=== PATIENT | female | born 1945 | race Caucasian/White ===

== ENCOUNTER → 2021-12-19 | Outpatient (CLI) | payer MEDICARE ==
[~2021-12-19] MED LIST: ANAS1 PO; ATOR40TA PO; BISA5EC PO; GABA300 PO; HYDCHL12.5 PO; HYDR1TAB94 PO; LETR2.5 PO; LISI5 PO; Milk Of Ma400 MG/5 M PO; Prednisone20 MG PO; WARF5 PO
== END ==
LOC: LAB SHORT 14:47
DX: R30.0 Dysuria (principal)
CPT/HCPCS: 87086

== ENCOUNTER 2022-07-15 10:06 | Day surgery (SDC) | payer MEDICARE ==
[~2022-07-15] VITALS: Ht 160 cm; Wt 53.0 kg
[2022-07-15] MEDS ORDERED: CILOSTAZOL50 M1 PO (10:47)
[2022-07-15] MEDS ORDERED: CLOP75 PO (10:47)
--- NOTE | 2022-07-15 15:36 | NUR ---
SPOKE TO DR LUDWIG CONCERNING AND INCREASE IN SWELLING OF LEFT CALF. TISSUE IS SOFT ABOVE, BELOW AND ON OPPOSITE SIDE. BLOOD PRESSURE CUFF APPLIED BUT TOO PAINFUL, COBAN PLACED LIGHTLY THAT HELPED WITH PAIN. CALF DOES NOT APPEAR TO HAVE INCREASED IN SWELLING. WARM BLANKET ON CALF HAS ALSO HELPED.
--- NOTE | 2022-07-15 16:08 | NUR ---
PATIENT SITTING UP IN BED. RIGHT AN LEFT GROIN SITE SOFT AND NONTENDER. LEFT CALF UNCHANGED,
--- NOTE | 2022-07-15 16:15 | NUR ---
LEFT GROIN SITE BLEED, MANUAL PRESSURE HELD, SITE CONTROLED.
--- NOTE | 2022-07-15 16:20 | NUR ---
RUT BASURTO HERE, TRADE OF OF MANUAL PRESSURE. SITE DOES NOT APPEAR TO BE BLEEDING AT THIS TIME, BUT MANUAL PRESSURE HELD BY RUT BASURTO FOR 10 MINTES.
--- NOTE | 2022-07-15 16:40 | NUR ---
LEFT GROIN SITE DRESSING PLACED. NO BLEEDING NO HEMATOMA. PEDAL PULSE 2, TIBIAL 1.
--- NOTE | 2022-07-15 17:34 | NUR ---
PATIENT SITTING UP IN BED. LEFT GROIN SITE SOFT AND NONTENDER NO HEMATOMA NO BLEEDING. COBAN REMOVED FROM LEFT CALF. TISSUE IS SOFTER THAN PRIOR AND THER IS NO INCREASED SWELLING.
--- NOTE | 2022-07-15 17:50 | NUR ---
PATIENT SITTING IN CHAIR. DRESSED. RIGHT AND LEFT GROIN SITES STABLE. PATIENT STATES THAT LEFT CALF DOES NOT HURT BAD AT THIS TIME.
--- NOTE | 2022-07-15 17:56 | NUR ---
PATIENT VERBALIZED UNDERSTANDING OF DISCHARGE INSTRUCTIONS AND PRECAUTIONS, LEFT CALF UNCHANGED, NO FURTHER SWELLING, NO INCREASED PAIN. LEFT AND RIGHT GROIN SITES SOFT AND NONTENDER , NO HEMATOMA, NO BLEEDING. NO FURTHER QUESTIONS. PATIENT TRANSFERRED VIA WHEEL CHAIR BY CLIFF BASURTO TO WAITING CAR. DAUGHTER IN LAW DRIVING
== END 2022-07-15 17:45 | disposition home or self-care (01) ==
LOC: MHTC 10:06
DX: I70.213 Atherosclerosis of native arteries of extremities with intermittent claudication, bilateral legs (principal); Z86.73 Personal history of transient ischemic attack (TIA), and cerebral infarction without residual deficits; I10 Essential (primary) hypertension; E78.5 Hyperlipidemia, unspecified; M81.0 Age-related osteoporosis without current pathological fracture; F17.210 Nicotine dependence, cigarettes, uncomplicated
CPT/HCPCS: 37225; 37244; 75625; 75710; 75716; 76937; 85347; 99152; 99153; A9270; C1714; C1725; C1769; C1887; C1894; C2623; J1644; J2250; J2405; J2720; J3010; J7030; J7040; Q9967

== ENCOUNTER 2023-01-28 10:58 | Emergency (ER) | payer MEDICARE ==
[~2023-01-28] VITALS: Ht 162.6 cm; Wt 49.9 kg
[~2023-01-28 10:58] MED LIST changes: +CILOSTAZOL50 M1 PO; +CLOP75 PO
[2023-01-28 11:20] LABS: BASOPHILS ABSOLUTE AUTO 0.07 K/mm3 (0.00-0.23); BASOPHILS PERCENT AUTO 1 % (0-2); EOSINOPHILS ABSOLUTE AUTO 0.12 K/mm3 (0.00-0.68); EOSINOPHILS PERCENT AUTO 1 % (0-6); Hematocrit 41.5 % (33.0-51.0); Hemoglobin 14.3 g/dL (11.5-16.0); IMMATURE GRAN ABSOLUTE AUTO 0.03 K/mm3 (0.00-0.10); IMMATURE GRAN PERCENT AUTO 0 % (0-1); LYMPHOCYTES ABSOLUTE AUTO 1.15 K/mm3 (0.84-5.20); LYMPHOCYTES PERCENT AUTO 14 % (21-46); MONOCYTES ABSOLUTE AUTO 0.67 K/mm3 (0.16-1.47); MONOCYTES PERCENT AUTO 8 % (4-13); Mean Corpuscular HGB 30.9 pg (26.0-34.0); Mean Corpuscular HGB Conc 34.5 g/dL (31.5-36.5); Mean Corpuscular Volume 90 fL (80-100); Mean Platelet Volume 8.3 fL (9.1-12.4); NEUTROPHILS PERCENT AUTO 76 % (41-73); Platelet Count 306 K/mm3 (150-400); RDW Coefficient Variation 13.5 % (11.7-14.2); RDW Standard Deviation 44.5 fL (35.1-46.3); Red Blood Cell Count 4.63 M/mm3 (3.80-5.20); White Blood Cell Count 8.44 K/mm3 (4.00-11.30)
[2023-01-28 11:38] LABS: Albumin, Blood 3.3 g/dL (3.4-5.0); Bilirubin, Total 0.5 mg/dL (0.1-1.0); Bun/Creatinine Ratio 16.4 (12.0-20.0); Creatinine, Blood 0.79 mg/dL (0.40-1.00); Globulin, Blood 3.4 g/dL (2.2-4.0); Magnesium, Blood 2.2 mg/dL (1.6-2.4); Potassium, Blood 4.2 mmol/L (3.5-5.5); Total Protein, Blood 6.7 g/dL (6.4-8.2)
[2023-01-28 11:43] VITALS: BP 240/75
[2023-01-28] MEDS ORDERED: HYDR1TAB94 PO (13:32)
== END 2023-01-28 13:40 | disposition home or self-care (01) ==
LOC: ER 10:58
PROVIDERS: Emergency Medicine
DX: R55 Syncope and collapse (principal); S02.2XXA Fracture of nasal bones, initial encounter for closed fracture; S01.511A Laceration without foreign body of lip, initial encounter; S61.411A Laceration without foreign body of right hand, initial encounter; W18.30XA Fall on same level, unspecified, initial encounter; Z88.1 Allergy status to other antibiotic agents; Z88.8 Allergy status to other drugs, medicaments and biological substances; Z79.899 Other long term (current) drug therapy; Z85.3 Personal history of malignant neoplasm of breast; F17.210 Nicotine dependence, cigarettes, uncomplicated
CPT/HCPCS: 36415; 70450; 70486; 72125; 80053; 83735; 85025; 93005; 93010; 99284-25; A9270; J7030

== ENCOUNTER 2023-04-05 17:38 | Emergency (ER) | payer MEDICARE ==
[~2023-04-05] VITALS: Ht 162.6 cm; Wt 49.4 kg
[~2023-04-05 17:38] MED LIST changes: +Aspir 8181 MG PO; +B COMPLEX VITAMINS; +BUPR150ER PO; +Calcium Carbon500 MG PO; +DOXYCYCLINE PO; +MULTIVITAMIN; +VITAMIN D3 ORAL
[2023-04-05 18:22] LABS: BASOPHILS ABSOLUTE AUTO 0.08 K/mm3 (0.00-0.23); BASOPHILS PERCENT AUTO 1 % (0-2); EOSINOPHILS ABSOLUTE AUTO 0.18 K/mm3 (0.00-0.68); EOSINOPHILS PERCENT AUTO 2 % (0-6); Hematocrit 43.3 % (33.0-51.0); Hemoglobin 14.9 g/dL (11.5-16.0); IMMATURE GRAN ABSOLUTE AUTO 0.02 K/mm3 (0.00-0.10); IMMATURE GRAN PERCENT AUTO 0 % (0-1); LYMPHOCYTES ABSOLUTE AUTO 1.13 K/mm3 (0.84-5.20); LYMPHOCYTES PERCENT AUTO 12 % (21-46); MONOCYTES ABSOLUTE AUTO 0.76 K/mm3 (0.16-1.47); MONOCYTES PERCENT AUTO 8 % (4-13); Mean Corpuscular HGB 30.4 pg (26.0-34.0); Mean Corpuscular HGB Conc 34.4 g/dL (31.5-36.5); Mean Corpuscular Volume 88 fL (80-100); Mean Platelet Volume 8.4 fL (9.1-12.4); NEUTROPHILS ABSOLUTE AUTO 7.64 K/mm3 (1.96-9.15); NEUTROPHILS PERCENT AUTO 78 % (41-73); Platelet Count 356 K/mm3 (150-400); RDW Coefficient Variation 13.7 % (11.7-14.2); RDW Standard Deviation 44.2 fL (35.1-46.3); White Blood Cell Count 9.81 K/mm3 (4.00-11.30)
[2023-04-05 18:32] LABS: International Normalized Ratio 0.94; Prothrombin Time Results 9.9 Sec (9.7-11.5)
[2023-04-05 18:44] LABS: Albumin, Blood 3.7 g/dL (3.4-5.0); Albumin/Globulin Ratio 0.8 (0.8-1.8); Bilirubin, Total 0.3 mg/dL (0.1-1.0); Bun/Creatinine Ratio 16.7 (12.0-20.0); Calcium, Blood 9.9 mg/dL (8.5-10.1); Creatinine, Blood 0.84 mg/dL (0.40-1.00); Globulin, Blood 4.4 g/dL (2.2-4.0); Potassium, Blood 4.3 mmol/L (3.5-5.5); Total Protein, Blood 8.1 g/dL (6.4-8.2)
[2023-04-05 19:16] VITALS: BP 199/73
== END 2023-04-05 20:15 | disposition home or self-care (01) ==
LOC: ER 17:38
PROVIDERS: Emergency Medicine
DX: I73.9 Peripheral vascular disease, unspecified (principal); F17.210 Nicotine dependence, cigarettes, uncomplicated; Z88.1 Allergy status to other antibiotic agents; Z88.8 Allergy status to other drugs, medicaments and biological substances; Z79.899 Other long term (current) drug therapy
CPT/HCPCS: 73706; 80053; 85025; 85610; 99284-25; Q9967

== ENCOUNTER 2023-04-27 11:21 | Observation (INO) | payer MEDICARE ==
[~2023-04-27] VITALS: Ht 160 cm; Wt 49.1 kg
[2023-04-27] VITALS (21 sets, daily range): BP systolic 113–176; BP diastolic 49–129
--- NOTE | 2023-04-27 15:55 | NUR ---
1230 PATIENT PREPPED FOR PROCEDURE AND DAUGHTER AT THE BEDSIDE.
--- NOTE | 2023-04-27 16:58 | NUR ---
PATIENT RETURNED FROM THE [facility]ATH[facility] WITH SHEATH IN PLACE TO THE LEFT FEMORAL ARTERY. PAITENT BECAME NAUSEATED WITH TRANSFER AND TURNED UP ON THE RIGHT SIDE AND GIVEN 4 MG IV ZOFRAN, PATIENT PLACED ON THE MONITOR, 4 LPM OF OXYGEN AND REPOSITIONED UP IN THE BED, SUPINE, FLAT. LEFT GROIN CDI, NO BLEEDING, NO HEMATOMA NOTED.
--- NOTE | 2023-04-27 17:10 | NUR ---
CALLED DAUGHTER AND UPDATED ON PATIENT STATUS AND NEED FOR STAY OVER NIGHT. ALL QUESTIONS ANSWERED.
--- NOTE | 2023-04-27 17:48 | NUR ---
SECOND PIV WAS STARTED TO THE RIGHT AC AND HEALRIN STARTED AT 300 UNIT/HR ORDERED. TPA TO THE BEDSIDE AND STARTED TO THE SIDEPORT OF THE SHEATH. BASELINE FIBRINOGEN WAS DRAWN IN THE HEART CENTER PRIOR TO TRANSFER. SBAR GIVEN TO SUSANA. TRANSFERED TO ICU #1 BY SHERINE MURILLO AND SHERINE TEJADA AND SUSANA BASURTO.
[2023-04-27 18:05] LABS: BASOPHILS ABSOLUTE AUTO 0.05 K/mm3 (0.00-0.23); BASOPHILS PERCENT AUTO 1 % (0-2); EOSINOPHILS ABSOLUTE AUTO 0.14 K/mm3 (0.00-0.68); EOSINOPHILS PERCENT AUTO 2 % (0-6); Hematocrit 34.8 % (33.0-51.0); Hemoglobin 11.5 g/dL (11.5-16.0); IMMATURE GRAN ABSOLUTE AUTO 0.02 K/mm3 (0.00-0.10); IMMATURE GRAN PERCENT AUTO 0 % (0-1); LYMPHOCYTES ABSOLUTE AUTO 1.09 K/mm3 (0.84-5.20); LYMPHOCYTES PERCENT AUTO 14 % (21-46); MONOCYTES ABSOLUTE AUTO 0.74 K/mm3 (0.16-1.47); MONOCYTES PERCENT AUTO 10 % (4-13); Mean Corpuscular HGB 30.4 pg (26.0-34.0); Mean Corpuscular Volume 92 fL (80-100); Mean Platelet Volume 8.4 fL (9.1-12.4); NEUTROPHILS ABSOLUTE AUTO 5.77 K/mm3 (1.96-9.15); NEUTROPHILS PERCENT AUTO 74 % (41-73); Platelet Count 277 K/mm3 (150-400); RDW Coefficient Variation 14.1 % (11.7-14.2); RDW Standard Deviation 47.8 fL (35.1-46.3); Red Blood Cell Count 3.78 M/mm3 (3.80-5.20); White Blood Cell Count 7.81 K/mm3 (4.00-11.30)
[2023-04-27 18:22] LABS: Anion Gap 8 mmol/L (6-16); Blood Urea Nitrogen 17 mg/dL (8-24); Bun/Creatinine Ratio 23.1 (12.0-20.0); CO2, Blood 23 mmol/L (21-32); Calcium, Blood 8.8 mg/dL (8.5-10.1); Chloride, Blood 103 mmol/L (98-108); Creatinine, Blood 0.74 mg/dL (0.40-1.00); Glomerular Filtration Rate 83 (60-); Glucose, Blood 127 mg/dL (70-99); Magnesium, Blood 2.3 mg/dL (1.6-2.4); Phosphorus, Blood 4.4 mg/dL (2.5-4.9); Potassium, Blood 4.5 mmol/L (3.5-5.5); Sodium, Blood 134 mmol/L (136-145)
--- NOTE | 2023-04-27 19:22 | NUR ---
[place] of Care: Care assumed at 1800hr. Patient transferred from to ICU rm 1 at 1800hr. Patient a/o x4, calm and cooperative with staff. VSS, spO2 96-98% on RA. Heparin gtt infusing at 6ml/hr (set rate) via peripheral IV. TPA gtt initiated to lt groin sheath at 1mg/hr, set to decrease to 0.5mg/hr after 6hr of infusion. Lt groin site/sheath wnl, no s/s of bleeding or hematoma. Patient denies pain with palpation to lt groin site and flank. Lt foot absent of pulses, but pink and warm. Cap refill slightly delayed 3-4 seconds. Patient denies pain to lt foot upon arrival, but c/o mild to moderate pain to lt lower leg at shift change. NOC RN to give prn pain medications. Bedside report given to NOC RN.
--- NOTE | 2023-04-27 20:00 | NUR ---
ASSUMED CARE OF PT AT 1900. BEDSIDE REPORT RECEIVED. PT PRESENTS IN BED. LEFT GROIN WITH SHEATH IN PLACE. TPA AND HEPARIN INFUSIONS VERIFIED WITH OFFGOING RN. GROIN SITE WITHOUT SWELLING OR OOZING. WAS ABLE TO OBTAIN DOPPLER PULSES PEDAL AND POST TIBIAL LEFT FOOT. BOTH LOWER EXTREMITIES EQUAL WARMTH. PT HAVING SOME RETURN OF DISCOMFORT IN LEFT LEG. WAS MEDICATED WITH TYLENOL. DISCUSSED WITH PT ADDING OXYCODONE FOR IMPROVED PAIN MANAGEMENT. WILL REVIEW CHART AND PLAN OF CARE FOR THIS PT.
[2023-04-28] VITALS (28 sets, daily range): BP systolic 105–165; BP diastolic 46–82
--- NOTE | 2023-04-28 00:56 | NUR ---
PT CONTINUES TO BE COMPLIANT WITH LAYING SUPINE SECONDARY TO FEMORAL SHEATH. NO S/S BLEEDING. CONTINUES WITH PALPABLE PEDAL AND POST TIBIAL PULSES RIGHT FOOT, AND DOPPLER PULSES LEFT. DID APPLY HEEL PROTECTORS FOR PT WHEN SHE HAD COMPLAINT OF HER HEELS HURTING FROM BEING ON BED. PT STATES THIS WAS VERY AFFECTIVE. WILL CONTINUE TO MONITOR.
--- NOTE | 2023-04-28 06:00 | NUR ---
PT HAS REMAINED COMPLIANT WITH RESTRICTIONS FROM LEFT FEMORAL SHEATH. NO S/S HEMATOMA OR OOZING TO NOTE. PT'S BLOOD PRESSURES HAVE IMPROVED. OXYCODONE FOR GENERAL LEFT LOWER EXTREMITY PAIN FOR GOOD PAIN MANAGEMENT. WILL CONTINUE TO MONITOR PT, AND WILL REPORT OFF TO ONCOMING RN
[2023-04-28 06:35] LABS: BASOPHILS ABSOLUTE AUTO 0.05 K/mm3 (0.00-0.23); BASOPHILS PERCENT AUTO 1 % (0-2); EOSINOPHILS ABSOLUTE AUTO 0.19 K/mm3 (0.00-0.68); EOSINOPHILS PERCENT AUTO 3 % (0-6); Hematocrit 28.4 % (33.0-51.0); Hemoglobin 9.7 g/dL (11.5-16.0); IMMATURE GRAN ABSOLUTE AUTO 0.01 K/mm3 (0.00-0.10); IMMATURE GRAN PERCENT AUTO 0 % (0-1); LYMPHOCYTES ABSOLUTE AUTO 0.98 K/mm3 (0.84-5.20); LYMPHOCYTES PERCENT AUTO 15 % (21-46); MONOCYTES ABSOLUTE AUTO 0.71 K/mm3 (0.16-1.47); MONOCYTES PERCENT AUTO 11 % (4-13); Mean Corpuscular HGB 30.5 pg (26.0-34.0); Mean Corpuscular HGB Conc 34.2 g/dL (31.5-36.5); Mean Corpuscular Volume 89 fL (80-100); Mean Platelet Volume 8.8 fL (9.1-12.4); NEUTROPHILS ABSOLUTE AUTO 4.62 K/mm3 (1.96-9.15); NEUTROPHILS PERCENT AUTO 70 % (41-73); Platelet Count 251 K/mm3 (150-400); RDW Standard Deviation 46.2 fL (35.1-46.3); Red Blood Cell Count 3.18 M/mm3 (3.80-5.20); White Blood Cell Count 6.56 K/mm3 (4.00-11.30)
--- NOTE | 2023-04-28 07:00 | NUR ---
ASSUMPTION OF CARE BEDSIDE REPORT RECEIVED FROM MELECIO BASURTO. PT RECEIVING HEPARIN 6ML/HR PERIPHERALLY. TPA INFUSING AT 12.5ML/HR VIA L GROIN SHEATH. SHE IS ALERT AND ORIENTED WITH PLEASANT AFFECT. PT ON RA. NSR ON MONITOR WITH RATE IN 60S. SBP 130S. CALL LIGHT WITHIN REACH. SEE SHIFT ASSESSMENT.
--- NOTE | 2023-04-28 10:23 | NUR ---
"Spiritual Care | Pt. request Pt. is awake in bed and welcomes my visit. Pt. is pleasant and verbalizes an anticipated discharge at some point today. Facilitated a life review and established rapport. Pt. had no particular concerns but welcomed prayer. Prayed with Pt. Pt. verbalized gratitude for the spiritual care visit."
[2023-04-28] MEDS ORDERED: CLOP75 PO (16:25)
[2023-04-28] MEDS ORDERED: OXAYDO5 M1 PO (16:26)
--- NOTE | 2023-04-28 16:49 | NUR ---
SHIFT SUMMARY/DISCHARGE TPA AND HEPARIN CONTINUED TO INFUSE UNTIL PT RETURNED TO NURSE ASSESSOR. RETURNS c SHEATH REMOVED. MINX TO LEFT GROIN. NO BRUISING, SWELLING, OR PAIN. DRESSING C/D/I. ANTICIPATE D/C THIS SHIFT.
--- NOTE | 2023-04-28 19:17 | NUR ---
D/C INSTRUCTIONS REVIEW. [facility] WNL. ASSISTED OTD.
== END 2023-04-28 19:15 | disposition home or self-care (01) ==
LOC: MHTC 11:21 → ICUE 18:09
PROVIDERS: ADMIT Family Medicine
DX: I73.9 Peripheral vascular disease, unspecified (principal); Z86.73 Personal history of transient ischemic attack (TIA), and cerebral infarction without residual deficits; I10 Essential (primary) hypertension; E78.5 Hyperlipidemia, unspecified; F17.210 Nicotine dependence, cigarettes, uncomplicated; Z88.8 Allergy status to other drugs, medicaments and biological substances; Z88.1 Allergy status to other antibiotic agents
CPT/HCPCS: 36415; 37184; 37185; 37211; 37226; 37252; 75710; 75774; 76937; 80069; 83735; 85018; 85025; 85384; 96374; 96376; 99152; 99153; A9270; C1725; C1753; C1757; C1760; C1769; C1874; C1887; C1894; G0378; J1644; J2250; J2405; J2997; J3010; J7030; J7050; Q9967

== ENCOUNTER 2024-01-27 09:03 | Day surgery (SDC) | payer MEDICARE ==
[2024-01-27] VITALS (7 sets, daily range): BP systolic 117–185; BP diastolic 56–93
[~2024-01-27] VITALS: Ht 160 cm; Wt 45.1 kg
[~2024-01-27 09:03] MED LIST changes: +MIRT15 PO; +MULVITA PO; +OXAYDO5 M1 PO; +TAGRISSO80 MG PO; +VITAMIN D33000 UNIT PO; +Vitamin B Comple1 EA; +Vitamin B Comple1 EA PO
[2024-01-27] MEDS ORDERED: DEXA4 (10:22)
[2024-01-27] MEDS ORDERED: Amitriptyline H10 MG PO (10:22)
[2024-01-27] MEDS ORDERED: Nitroglycerin 2 MG/20 ML BTL ONE (13:16)
[2024-01-27] MEDS ORDERED: NS 1,000 ML IV ONE ×2 (13:16→13:33)
[2024-01-27] MEDS ORDERED: NS 250 ML IV ONE (13:16)
[2024-01-27] MEDS ORDERED: Heparin Sodium 1000 Units/ML 10ML MDV ONE (13:16)
[2024-01-27] MEDS ORDERED: Midazolam HCl 1MG / ML 2ML Vial ONE ×2 (13:32→14:42)
[2024-01-27] MEDS ORDERED: FentaNYL Citrate 50 MCG/ML 2 ML Injection ONE ×2 (13:33→14:43)
[2024-01-27] MEDS ORDERED: HydrALAZINE HCl 20 MG / ML 1ML Vial ONE (14:03)
[2024-01-27] MEDS ORDERED: Verapamil HCL 2.5 MG/ML 2ML Injection ONE (14:30)
--- NOTE | 2024-01-27 15:51 | NUR ---
PT BACK TO RECOVERY ROOM. TO DROWSY. LAYING FLAT. L GROIN SITE SOFT NONTENDER, NO BLEEDING.
--- NOTE | 2024-01-27 16:04 | NUR ---
PT TAKING SIPS OF WATER WITH HEAD TO SIDE. PT ALERT AND ORIENTED.
--- NOTE | 2024-01-27 17:41 | NUR ---
PT AND FAMILY VERBALIZE D/C INSTRUCTIONS. PT UP TO BR AND GETTING DRESSED WITH ASSISTANCE. IV LEFT IN PLACE FOR SCHEDULED MRI TOMORROW. COBAN WRAPPED AND ARM BOARD APPLIED.
== END 2024-01-27 18:00 | disposition home or self-care (01) ==
LOC: MHTC 09:03 → EDSTATUS 11:00 → MHTC 18:00
DX: I70.223 Atherosclerosis of native arteries of extremities with rest pain, bilateral legs (principal); C34.90 Malignant neoplasm of unspecified part of unspecified bronchus or lung; I10 Essential (primary) hypertension; E78.5 Hyperlipidemia, unspecified; F17.210 Nicotine dependence, cigarettes, uncomplicated; Z88.1 Allergy status to other antibiotic agents; Z88.8 Allergy status to other drugs, medicaments and biological substances; Z79.899 Other long term (current) drug therapy
CPT/HCPCS: 37226; 37228; 37232; 75625; 75716; 75774; 76937; 99152; 99153; C1725; C1760; C1769; C1874; C1887; C1894; J0360; J1644; J2250; J3010; J7030; J7050; Q9967